=== PATIENT | female | born 1940 | race Caucasian/White ===

== ENCOUNTER 2022-06-03 01:31 | Inpatient (IN) | payer OTHER ==
[~2022-06-03] VITALS: Ht 160 cm; Wt 68.0 kg
[~2022-06-03 01:31] MED LIST: GABA250S2 PO; LIS10T GT; PAR20T GT
[2022-06-03 04:30] LABS: Urine Bacteria FEW /hpf (None Seen); Urine Blood Negative /uL (Negative); Urine Specific Gravity 1.006 (1.001-1.035); Urine WBC 5 /hpf (0 - 5)
[2022-06-03] MEDS ORDERED: NITR-87 PO (10:25)
[2022-06-03] MEDS ORDERED: cefTRIAXone 1GM/50ML D5W 50 ML IV ONE (10:30)
[2022-06-03 13:54] LABS: Basophils # (auto) 0 10 ^3/uL (0-0.2); Basophils % (auto) 0.5 % (0.0-2.0); Eosinophils # (auto) 0 10 ^3/uL (0-0.8); Eosinophils % (auto) 0.1 % (0.0-7.0); Hematocrit 38.8 % (36.0-46.0); Hemoglobin 12.7 g/dL (12.2-16.2); Lymphocytes # (auto) 0.8 10 ^3/uL (0.4-5.4); Lymphocytes % (auto) 12.9 % (10.0-50.0); Mean Corpuscular Hemoglobin 31.1 pg (28.0-32.0); Mean Corpuscular Hgb Conc. 32.8 g/dL (32.0-36.0); Mean Corpuscular Volume 94.7 fL (80.0-100.0); Monocytes # (auto) 0.8 10 ^3/uL (0-1.3); Monocytes % (auto) 12.2 % (0.0-12.0); Neutrophils # (auto) 4.6 10 ^3/uL (1.6-8.6); Neutrophils % (auto) 74.3 % (37.0-80.0); Nucleated Red Blood Cells % 0.1 %; Red Cell Distribution Width 13.6 % (11.8-14.3); White Blood Cell 6.2 10^3/uL (4.4-10.8)
[2022-06-03 14:17] LABS: Albumin 3.4 g/dL (3.4-5.0); BUN/Creatinine Ratio 14.9; Potassium 3.8 mmol/L (3.5-5.1)
[2022-06-03 14:22] LABS: Bilirubin, Total 1.3 mg/dL (0.2-1.0)
[2022-06-03] MEDS ORDERED: ONDANSETRON HCL 4 MG/2 ML VIAL IV PRN (14:30)
[2022-06-03] MEDS ORDERED: SODIUM CHLORIDE 0.9% 1,000 ML IV SCH (14:30)
[2022-06-03] MEDS ORDERED: NITROGLYCERIN 0.4 MG SL TAB SL PRN (14:30)
[2022-06-03] MEDS ORDERED: MORPHINE SULFATE INJ 2 MG/ml SYRG IV PRN (14:30)
[2022-06-03 18:04] VITALS: BP 142/86
[2022-06-04] MEDS ORDERED: cefTRIAXone 1GM/50ML D5W 50 ML IV SCH (09:00)
[2022-06-04] MEDS ORDERED: LISINOPRIL 10 MG TAB GT SCH (10:00)
[2022-06-04] MEDS ORDERED: PARoxetine 20 MG TAB GT SCH (10:00)
[2022-06-04 10:11] LABS: Folate (Folic Acid) 14.99 ng/mL (5.38-24)
[2022-06-04] MEDS ORDERED: CIPR500T4 PO (11:08)
== END 2022-06-03 17:50 | disposition home or self-care (01) | DRG 689 ==
LOC: EDBD 01:31 → ER 01:31 → OVERFLOW 14:19
PROVIDERS: ADMIT Hospitalist; ATTEND Hospitalist
DX: N39.0 Urinary tract infection, site not specified (principal); G93.41 Metabolic encephalopathy; I10 Essential (primary) hypertension; Z60.2 Problems related to living alone; S81.812A Laceration without foreign body, left lower leg, initial encounter; S81.811A Laceration without foreign body, right lower leg, initial encounter; Z20.822 Contact with and (suspected) exposure to COVID-19; W18.39XA Other fall on same level, initial encounter; Z80.1 Family history of malignant neoplasm of trachea, bronchus and lung; Z80.3 Family history of malignant neoplasm of breast; Z80.41 Family history of malignant neoplasm of ovary; Z80.8 Family history of malignant neoplasm of other organs or systems; Z81.8 Family history of other mental and behavioral disorders; Z82.0 Family history of epilepsy and other diseases of the nervous system; Z82.3 Family history of stroke; Z82.49 Family history of ischemic heart disease and other diseases of the circulatory system; Z82.5 Family history of asthma and other chronic lower respiratory diseases; Z82.62 Family history of osteoporosis; Z90.710 Acquired absence of both cervix and uterus; Z83.3 Family history of diabetes mellitus; Y93.89 Activity, other specified; Y92.89 Other specified places as the place of occurrence of the external cause; Y99.8 Other external cause status
CPT/HCPCS: 36415; 70450; 72170; 80053; 81001; 82607; 82746; 84443; 84484; 85025; 96365; G0378; J0696

== ENCOUNTER 2022-09-13 23:12 | Inpatient (IN) | payer OTHER ==
[~2022-09-13] VITALS: Ht 157.5 cm; Wt 54.4 kg
[~2022-09-13 23:12] MED LIST changes: +CIPR500T4 PO; +NITR-87 PO
[2022-09-14 01:13] LABS: Basophils # (auto) 0 10 ^3/uL (0-0.2); Basophils % (auto) 0.4 % (0.0-2.0); Eosinophils # (auto) 0 10 ^3/uL (0-0.8); Hematocrit 36.9 % (36.0-46.0); Hemoglobin 12.3 g/dL (12.2-16.2); Lymphocytes # (auto) 1.2 10 ^3/uL (0.4-5.4); Lymphocytes % (auto) 14.6 % (10.0-50.0); Mean Corpuscular Hemoglobin 30.7 pg (28.0-32.0); Mean Corpuscular Hgb Conc. 33.2 g/dL (32.0-36.0); Mean Corpuscular Volume 92.7 fL (80.0-100.0); Monocytes # (auto) 0.8 10 ^3/uL (0-1.3); Neutrophils # (auto) 6.2 10 ^3/uL (1.6-8.6); Nucleated Red Blood Cells % 0.1 %; Red Blood Cells 3.98 10^6/uL (4.0-5.20); White Blood Cell 8.3 10^3/uL (4.4-10.8)
[2022-09-14 01:31] LABS: Albumin 2.6 g/dL (3.4-5.0); BUN/Creatinine Ratio 42.7; Calcium 10.4 mg/dL (8.5-10.1); Potassium 4.1 mmol/L (3.5-5.1)
[2022-09-14 01:34] LABS: Bilirubin, Total 0.9 mg/dL (0.2-1.0); Total Protein 6.6 g/dL (6.4-8.2)
[2022-09-14 02:10] LABS: Alcohol, Urine < 3.0 mg/dL (0-10); Amphetamine Screen, Urine NEGATIVE (NEGATIVE); Barbiturate Scree,Urine NEGATIVE (NEGATIVE); Benzodiazephine Screen, Urine NEGATIVE (NEGATIVE); Cannabinoid Screen, Urine NEGATIVE (NEGATIVE); Cocaine Screen, Urine NEGATIVE (NEGATIVE); Opiate Scree,Urine NEGATIVE (NEGATIVE); Phencyclidine Screen, Urine NEGATIVE (NEGATIVE)
[2022-09-14 02:29] LABS: Urine Bacteria MOD /hpf (None Seen); Urine Blood Negative /uL (Negative); Urine Mucus FEW (None Seen); Urine Specific Gravity 1.021 (1.001-1.035); Urine WBC 58 /hpf (0 - 5)
[2022-09-14] MEDS ORDERED: SODIUM CHLORIDE 0.9% 1,000 ML IV ONE (02:45)
[2022-09-14] MEDS ORDERED: AZITHROMYCIN 500MG/ 250ML 250 ML IV ONE (04:15)
[2022-09-14] MEDS ORDERED: cefTRIAXone 1GM/50ML D5W 50 ML IV ONE (04:15)
[2022-09-14] MEDS ORDERED: ONDANSETRON HCL 4 MG/2 ML VIAL IV PRN (04:15)
[2022-09-14] MEDS ORDERED: DOCUSATE SOD 100 MG CAP PO PRN (04:15)
[2022-09-14] MEDS ORDERED: HYDROcodone-ACET 5/325MG TAB PO PRN (04:15)
[2022-09-14] MEDS ORDERED: ACETAMINOPHEN 325 MG TAB PO PRN (04:15)
[2022-09-14] MEDS ORDERED: ALBUMIN 25% 100 ML IV ONE (04:15)
[2022-09-14] MEDS ORDERED: ASPirin 81 mg TAB PO ONE (05:30)
[2022-09-14] MEDS: SODIUM CHLOR 0.9% PF (SALINE LOCK) 10ML VIAL/SYR IV SCH ×3 (06:05→22:01)
[2022-09-14] MEDS ORDERED: NITROGLYCERIN 0.4 MG SL TAB SL PRN (06:15)
[2022-09-14] MEDS ORDERED: MORPHINE SULFATE INJ 2 MG/ml SYRG IV PRN (06:15)
[2022-09-14] MEDS ORDERED: ACETAMINOPHEN 325 MG RECT SUPP PR PRN (06:15)
[2022-09-14] MEDS ORDERED: SODIUM CHLORIDE 0.9% 1,000 ML IV SCH ×2 (09:00→09:30)
[2022-09-14] MEDS ORDERED: CYANOCOBALAMIN (B-12) 1000 MCG/1 ML VIAL IM ONE (09:45)
[2022-09-14] MEDS ORDERED: ASPirin 81 mg TAB PO SCH (10:00)
[2022-09-14] MEDS: FAMOTIDINE (10MG/ML) 2ML VL IV SCH (10:22)
[2022-09-14] MEDS: HEPARIN SODIUM (PORCINE) 5000 UNITS/ML 1ML VIAL SC SCH ×2 (10:24→22:03)
[2022-09-14] MEDS: D5W 5% 1,000 ML IV SCH ×2 (12:11→22:01)
[2022-09-14 17:09] LABS: Protein, Urine 27.1 mg/dL (0.0-11.9)
[2022-09-15] VITALS (7 sets, daily range): BP systolic 95–125; BP diastolic 43–75
[2022-09-15] MEDS: SODIUM CHLOR 0.9% PF (SALINE LOCK) 10ML VIAL/SYR IV SCH ×3 (06:24→21:33)
[2022-09-15] MEDS: D5W 5% 1,000 ML IV SCH ×2 (07:12→18:33)
[2022-09-15 07:45] LABS: Albumin 2.6 g/dL (3.4-5.0); BUN/Creatinine Ratio 50.9; Calcium 9.2 mg/dL (8.5-10.1); Potassium 3.2 mmol/L (3.5-5.1)
[2022-09-15 07:48] LABS: Bilirubin, Total 0.4 mg/dL (0.2-1.0); Phosphorus 1.5 mg/dL (2.5-4.90); Total Protein 5.5 g/dL (6.4-8.2)
[2022-09-15 07:54] LABS: Basophils # (auto) 0 10 ^3/uL (0-0.2); Basophils % (auto) 0.5 % (0.0-2.0); Eosinophils # (auto) 0.2 10 ^3/uL (0-0.8); Eosinophils % (auto) 2.6 % (0.0-7.0); Hematocrit 28.8 % (36.0-46.0); Hemoglobin 9.7 g/dL (12.2-16.2); Lymphocytes # (auto) 1.3 10 ^3/uL (0.4-5.4); Lymphocytes % (auto) 21.8 % (10.0-50.0); Mean Corpuscular Hemoglobin 31.1 pg (28.0-32.0); Mean Corpuscular Hgb Conc. 33.6 g/dL (32.0-36.0); Mean Corpuscular Volume 92.4 fL (80.0-100.0); Monocytes # (auto) 0.4 10 ^3/uL (0-1.3); Monocytes % (auto) 7.5 % (0.0-12.0); Neutrophils % (auto) 67.6 % (37.0-80.0); Nucleated Red Blood Cells % 0.1 %; Red Blood Cells 3.11 10^6/uL (4.0-5.20); Red Cell Distribution Width 14.4 % (11.8-14.3); White Blood Cell 5.9 10^3/uL (4.4-10.8)
[2022-09-15 08:02] LABS: Uric Acid 4.9 mg/dL (2.6-6.0)
[2022-09-15] MEDS: FAMOTIDINE (10MG/ML) 2ML VL IV SCH (09:25)
[2022-09-15] MEDS: cefTRIAXone 1GM/50ML D5W 50 ML IV SCH (09:25)
[2022-09-15] MEDS: CYANOCOBALAMIN 500 MCG TAB PO SCH (09:45)
[2022-09-15] MEDS: HEPARIN SODIUM (PORCINE) 5000 UNITS/ML 1ML VIAL SC SCH ×2 (09:45→21:34)
[2022-09-15] MEDS: AZITHROMYCIN 500MG/ 250ML 250 ML IV SCH (12:03)
[2022-09-16] MEDS: D5W 5% 1,000 ML IV SCH ×3 (00:38→23:06)
[2022-09-16 05:00] VITALS: BP 100/57
[2022-09-16] MEDS: SODIUM CHLOR 0.9% PF (SALINE LOCK) 10ML VIAL/SYR IV SCH ×3 (06:22→22:29)
[2022-09-16] MEDS: cefTRIAXone 1GM/50ML D5W 50 ML IV SCH (08:45)
[2022-09-16 09:00] VITALS: BP 107/47
[2022-09-16 09:50] LABS: Calcium 9.3 mg/dL (8.5-10.1)
[2022-09-16 10:06] LABS: Potassium 2.9 mmol/L (3.5-5.1)
[2022-09-16] MEDS: FAMOTIDINE (10MG/ML) 2ML VL IV SCH (11:09)
[2022-09-16] MEDS: CYANOCOBALAMIN 500 MCG TAB PO SCH (11:09)
[2022-09-16] MEDS: HEPARIN SODIUM (PORCINE) 5000 UNITS/ML 1ML VIAL SC SCH ×2 (11:10→22:29)
[2022-09-16] MEDS: AZITHROMYCIN 500MG/ 250ML 250 ML IV SCH (11:11)
[2022-09-16 12:30] VITALS: BP 97/52
[2022-09-16] MEDS ORDERED: SOD CHL 0.9%/ KCL 20MEQ 1,000 ML IV SCH (13:30)
[2022-09-16] MEDS ORDERED: POTASSIUM CHL 20MEQ/100ML 100 ML IV ONE (13:30)
[2022-09-16] MEDS ORDERED: POTASSIUM EFFERVESENT TAB 25 MEQ PO ONE (13:45)
[2022-09-16 17:00] VITALS: BP 93/43
[2022-09-16 22:00] VITALS: BP 98/44
[2022-09-17 05:00] VITALS: BP 101/47
[2022-09-17] MEDS: SODIUM CHLOR 0.9% PF (SALINE LOCK) 10ML VIAL/SYR IV SCH ×3 (06:42→22:39)
[2022-09-17 08:00] VITALS: BP 112/67
[2022-09-17] MEDS: CYANOCOBALAMIN 500 MCG TAB PO SCH (09:36)
[2022-09-17] MEDS: cefTRIAXone 1GM/50ML D5W 50 ML IV SCH (09:36)
[2022-09-17] MEDS: AZITHROMYCIN 500MG/ 250ML 250 ML IV SCH (09:37)
[2022-09-17] MEDS: HEPARIN SODIUM (PORCINE) 5000 UNITS/ML 1ML VIAL SC SCH ×2 (09:46→22:51)
[2022-09-17] MEDS ORDERED: POTASSIUM PHOSPHATE 44 MEQ in D5W 5% 250 ML IV ONE (11:45)
[2022-09-17 12:00] VITALS: BP 96/48
[2022-09-17] MEDS: POTASSIUM CHLORIDE 40 MEQ in D5W 5% 1,000 ML IV SCH ×2 (15:21→22:39)
[2022-09-17 16:00] VITALS: BP 107/53
[2022-09-17 18:53] LABS: BUN/Creatinine Ratio 18.3; Calcium 9.1 mg/dL (8.5-10.1); Potassium 4.3 mmol/L (3.5-5.1)
[2022-09-17 22:00] VITALS: BP 103/73
[2022-09-18 05:00] VITALS: BP 111/65
[2022-09-18] MEDS: SODIUM CHLOR 0.9% PF (SALINE LOCK) 10ML VIAL/SYR IV SCH ×3 (06:18→23:05)
[2022-09-18 06:42] LABS: Phosphorus 2.6 mg/dL (2.5-4.90)
[2022-09-18 09:00] VITALS: BP 123/60
[2022-09-18] MEDS: cefTRIAXone 1GM/50ML D5W 50 ML IV SCH (10:48)
[2022-09-18] MEDS: CYANOCOBALAMIN 500 MCG TAB PO SCH (10:49)
[2022-09-18] MEDS: AZITHROMYCIN 500MG/ 250ML 250 ML IV SCH (10:49)
[2022-09-18] MEDS: SOD CHL 0.45% 1,000 ML IV SCH (10:59)
[2022-09-18] MEDS: HEPARIN SODIUM (PORCINE) 5000 UNITS/ML 1ML VIAL SC SCH ×2 (10:59→23:05)
[2022-09-18 13:00] VITALS: BP 122/71
[2022-09-18 17:00] VITALS: BP 131/63
[2022-09-18 22:00] VITALS: BP 132/72
[2022-09-19] MEDS: SOD CHL 0.45% 1,000 ML IV SCH ×2 (01:12→11:39)
[2022-09-19 05:00] VITALS: BP 141/66
[2022-09-19 06:28] LABS: Basophils # (auto) 0 10 ^3/uL (0-0.2); Basophils % (auto) 0.3 % (0.0-2.0); Eosinophils # (auto) 0 10 ^3/uL (0-0.8); Eosinophils % (auto) 0.4 % (0.0-7.0); Hematocrit 30.6 % (36.0-46.0); Hemoglobin 10.3 g/dL (12.2-16.2); Lymphocytes # (auto) 0.8 10 ^3/uL (0.4-5.4); Lymphocytes % (auto) 11.1 % (10.0-50.0); Mean Corpuscular Hemoglobin 31.3 pg (28.0-32.0); Mean Corpuscular Hgb Conc. 33.5 g/dL (32.0-36.0); Mean Corpuscular Volume 93.3 fL (80.0-100.0); Monocytes # (auto) 0.9 10 ^3/uL (0-1.3); Monocytes % (auto) 13.1 % (0.0-12.0); Neutrophils # (auto) 5.3 10 ^3/uL (1.6-8.6); Neutrophils % (auto) 75.1 % (37.0-80.0); Red Blood Cells 3.28 10^6/uL (4.0-5.20); Red Cell Distribution Width 14.3 % (11.8-14.3)
[2022-09-19 06:39] LABS: Calcium 9.6 mg/dL (8.5-10.1); Magnesium 2.2 mg/dL (1.6-2.6); Potassium 4.3 mmol/L (3.5-5.1)
[2022-09-19 06:41] LABS: BUN/Creatinine Ratio 19.5
[2022-09-19] MEDS: SODIUM CHLOR 0.9% PF (SALINE LOCK) 10ML VIAL/SYR IV SCH ×3 (06:43→21:56)
[2022-09-19 08:56] VITALS: BP 123/64
[2022-09-19] MEDS: cefTRIAXone 1GM/50ML D5W 50 ML IV SCH (09:22)
[2022-09-19] MEDS: CYANOCOBALAMIN 500 MCG TAB PO SCH (09:23)
[2022-09-19] MEDS: HEPARIN SODIUM (PORCINE) 5000 UNITS/ML 1ML VIAL SC SCH ×2 (09:27→22:00)
[2022-09-19] MEDS: AZITHROMYCIN 500MG/ 250ML 250 ML IV SCH (11:39)
[2022-09-19 12:22] VITALS: BP 124/61
[2022-09-19 16:15] VITALS: BP 101/60
[2022-09-19 20:00] VITALS: BP 138/81
[2022-09-19 22:04] VITALS: BP 138/81
[2022-09-20 05:16] VITALS: BP 118/56
[2022-09-20] MEDS: SODIUM CHLOR 0.9% PF (SALINE LOCK) 10ML VIAL/SYR IV SCH ×2 (05:53→13:32)
[2022-09-20] MEDS: SOD CHL 0.45% 1,000 ML IV SCH (06:43)
[2022-09-20 08:00] VITALS: BP 123/57
[2022-09-20] MEDS: cefTRIAXone 1GM/50ML D5W 50 ML IV SCH (09:17)
[2022-09-20] MEDS: AZITHROMYCIN 500MG/ 250ML 250 ML IV SCH (09:17)
[2022-09-20] MEDS: CYANOCOBALAMIN 500 MCG TAB PO SCH (09:18)
[2022-09-20] MEDS: HEPARIN SODIUM (PORCINE) 5000 UNITS/ML 1ML VIAL SC SCH (09:19)
[2022-09-20 12:00] VITALS: BP 105/52
== END 2022-09-20 14:15 | disposition hospice, home (50) | DRG 70 ==
LOC: ER 23:12 → EDBD 23:12 → TELE 09-14 06:02 → TELE-EAST 09-14 22:19
PROVIDERS: ADMIT Nurse Practitioner Family; ATTEND Internal Medicine
DX: G93.41 Metabolic encephalopathy (principal); N17.0 Acute kidney failure with tubular necrosis; N39.0 Urinary tract infection, site not specified; I24.8 Other forms of acute ischemic heart disease; R64 Cachexia; E87.0 Hyperosmolality and hypernatremia; E87.1 Hypo-osmolality and hyponatremia; Z68.1 Body mass index [BMI] 19.9 or less, adult; Z20.822 Contact with and (suspected) exposure to COVID-19; I10 Essential (primary) hypertension; K44.9 Diaphragmatic hernia without obstruction or gangrene; B96.20 Unspecified Escherichia coli [E. coli] as the cause of diseases classified elsewhere; E78.00 Pure hypercholesterolemia, unspecified; E78.5 Hyperlipidemia, unspecified; E87.5 Hyperkalemia; E88.09 Other disorders of plasma-protein metabolism, not elsewhere classified; F02.80 Dementia in other diseases classified elsewhere, unspecified severity, without behavioral disturbance, psychotic disturbance, mood disturbance, and anxiety; E87.6 Hypokalemia; E83.39 Other disorders of phosphorus metabolism; G30.9 Alzheimer's disease, unspecified; Z80.1 Family history of malignant neoplasm of trachea, bronchus and lung; Z80.3 Family history of malignant neoplasm of breast; Z80.0 Family history of malignant neoplasm of digestive organs; Z80.41 Family history of malignant neoplasm of ovary; Z80.8 Family history of malignant neoplasm of other organs or systems; Z81.8 Family history of other mental and behavioral disorders; Z82.0 Family history of epilepsy and other diseases of the nervous system; Z82.5 Family history of asthma and other chronic lower respiratory diseases; Z82.62 Family history of osteoporosis; Z82.49 Family history of ischemic heart disease and other diseases of the circulatory system; Z82.3 Family history of stroke; Z83.3 Family history of diabetes mellitus; Z90.710 Acquired absence of both cervix and uterus
CPT/HCPCS: 36415; 70450; 71045; 71250; 74176; 80048; 80053; 80307; 81001; 82570; 83090; 83605; 83735; 83880; 84100; 84156; 84300; 84484; 84550; 85025; 87086; 87088; 87186; 87426; 92610; 93005; 95819; 96361; 96365; 96367; 96368; 96372; 97110; 97116; 97163; 97530; G0378; J0696; J3480; J3490; J7060; P9047